=== PATIENT | male | born 1960 | race Caucasian/White ===

== ENCOUNTER 2017-09-27 08:57 | Emergency (ER) | payer OTHER ==
[~2017-09-27] VITALS: Ht 170.2 cm; Wt 71.2 kg
[~2017-09-27 08:57] MED LIST: ACYC800 PO; AMIT50 PO; ASPI81CH PO; ATOR40TA PO; CLOP75 PO; GABA300 PO; METO25 PO; METO25ER PO; NAPR500 PO; PANT40 PO; Protonix40 MG PO; SERT50 PO; VARE1 PO
[2017-09-27] MEDS ORDERED: EPIPEN 2-P0.3 MG/0.3 IM (09:09)
== END 2017-09-27 09:54 | disposition home or self-care (01) ==
LOC: ER 08:57
DX: T63.441A Toxic effect of venom of bees, accidental (unintentional), initial encounter (principal); Z79.82 Long term (current) use of aspirin; Z79.899 Other long term (current) drug therapy
CPT/HCPCS: 96372; 99283; J0171; Q0163

== ENCOUNTER → 2019-08-08 | Outpatient (CLI) | payer BC ==
[~2019-08-08] MED LIST changes: +EPIPEN 2-P0.3 MG/0.3 IM
[2019-08-08 09:02] LABS: BASOPHILS ABSOLUTE AUTO 0.04 K/mm3 (0.00-0.23); BASOPHILS PERCENT AUTO 0 % (0-2); EOSINOPHILS ABSOLUTE AUTO 0.31 K/mm3 (0.00-0.68); EOSINOPHILS PERCENT AUTO 3 % (0-6); Hematocrit 44.9 % (37.0-53.0); Hemoglobin 15.5 g/dL (13.5-17.5); IMMATURE GRAN ABSOLUTE AUTO 0.02 K/mm3 (0.00-0.10); IMMATURE GRAN PERCENT AUTO 0 % (0-1); LYMPHOCYTES ABSOLUTE AUTO 2.85 K/mm3 (0.84-5.20); LYMPHOCYTES PERCENT AUTO 29 % (21-46); MONOCYTES PERCENT AUTO 11 % (4-13); Mean Corpuscular HGB 29.6 pg (26.0-34.0); Mean Corpuscular HGB Conc 34.5 g/dL (31.5-36.5); Mean Corpuscular Volume 86 fL (80-100); Mean Platelet Volume 9.1 fL (9.1-12.4); NEUTROPHILS ABSOLUTE AUTO 5.39 K/mm3 (1.96-9.15); NEUTROPHILS PERCENT AUTO 56 % (41-73); Platelet Count 297 K/mm3 (150-400); RDW Coefficient Variation 13.1 % (11.7-14.2); RDW Standard Deviation 40.7 fL (35.1-46.3); Red Blood Cell Count 5.24 M/mm3 (4.30-5.90); White Blood Cell Count 9.71 K/mm3 (4.00-11.30)
[2019-08-08 09:12] LABS: Alanine Aminotransfer (ALT/SGP 33 U/L (12-78); Albumin, Blood 4.1 g/dL (3.4-5.0); Albumin/Globulin Ratio 1.1 (0.8-1.8); Alk Phos 59 U/L (40-126); Anion Gap 10 mmol/L (6-16); Aspartate Aminotrans (AST/SGOT 20 U/L (12-37); Bilirubin, Total 0.4 mg/dL (0.1-1.0); Blood Urea Nitrogen 25 mg/dL (8-24); Bun/Creatinine Ratio 29.8 (12.0-20.0); CO2, Blood 25 mmol/L (21-32); Calcium, Blood 8.4 mg/dL (8.5-10.1); Chloride, Blood 105 mmol/L (98-108); Creatinine, Blood 0.84 mg/dL (0.60-1.20); Globulin, Blood 3.6 g/dL (2.2-4.0); Glomerular Filtration Rate >60 (60-); Glucose, Blood 103 mg/dL (70-99); Potassium, Blood 4.3 mmol/L (3.5-5.5); Sodium, Blood 140 mmol/L (136-145); Total Protein, Blood 7.7 g/dL (6.4-8.2)
== END | disposition home or self-care (01) ==
LOC: LAB EV 08:55 → LAB SHORT 08:55
PROVIDERS: Physician Assistant
DX: R50.9 Fever, unspecified (principal); R05 Cough
CPT/HCPCS: 80053; 85025

== ENCOUNTER 2019-11-12 03:14 | Emergency (ER) | payer BC ==
[~2019-11-12] VITALS: Ht 170.2 cm; Wt 73.9 kg
[2019-11-12] MEDS ORDERED: Cyclobenzaprine5 MG PO (04:59)
== END 2019-11-12 05:03 | disposition home or self-care (01) ==
LOC: ER 03:14
DX: M43.6 Torticollis (principal); F17.210 Nicotine dependence, cigarettes, uncomplicated
CPT/HCPCS: 96372; 99283-25; J1885

== ENCOUNTER 2021-08-18 08:02 | Day surgery (SDC) | payer BC, OTHER ==
[~2021-08-18] VITALS: Ht 170.2 cm; Wt 69.5 kg
[~2021-08-18 08:02] MED LIST changes: +ATOR80 PO; +Cyclobenzaprine5 MG PO; +FLOMAX0.4 MG PO; +Prinivil10 MG PO
--- NOTE | 2021-08-18 08:38 | NUR ---
History, Chart, Medications and Allergies reviewed before start of procedure. Patient confirms NPO status and agrees with scheduled surgery. Patient States Post-Procedure ride home has been arranged with friend Ashok Duran.
--- NOTE | 2021-08-18 09:22 | NUR ---
08/18/21 0922 Cheng Ardon History, Chart, Medications and Allergies reviewed before start of procedure. Patient confirms NPO status and agrees with scheduled surgery. 3-LEAD EKG REVIEWED WITH PHYSICIAN PRIOR TO START OF PROCEDURE. MONITOR INTACT WITH CONTINUOUS PULSE OXIMETRY AND INTERMITTENT BP. PATIENT DETERMINED TO BE ASA APPROPRIATE FOR PROPOFOL SEDATION PRIOR TO START OF PROCEDURE BY
--- NOTE | 2021-08-18 11:00 | NUR ---
PT DECLINES FOOD AND WATER MULT TIMES, REPORTS READY TO GO HOME AND HAVE A MEAL. Patient up to Ambulate independently. Gait steady. Discharge instructions reviewed with patient. Patient verbalizes understanding. Copy given to patient to take home. Patient States Post-Procedure ride home has been arranged. Discharged via wheelchair to private car for ride home.
== END 2021-08-18 11:00 | disposition home or self-care (01) ==
LOC: ORSCMMR 08:02 → ORD 09:30 → ORSCMMR 09:30
PROVIDERS: Internal Medicine Gastroenterology
PROC: 0DB78ZX Excision of Stomach, Pylorus, Via Natural or Artificial Opening Endoscopic, Diagnostic (ICD-10-PCS; principal; 2021-08-18 09:30)
PROC: 3E0H8KZ Introduction of Other Diagnostic Substance into Lower GI, Via Natural or Artificial Opening Endoscopic (ICD-10-PCS; principal; 2021-08-18 09:30)
PROC: 0DBN8ZX Excision of Sigmoid Colon, Via Natural or Artificial Opening Endoscopic, Diagnostic (ICD-10-PCS; principal; 2021-08-18 09:30)
PROC: 0D757ZZ Dilation of Esophagus, Via Natural or Artificial Opening (ICD-10-PCS; principal; 2021-08-18 09:30)
PROC: 0DBM8ZX Excision of Descending Colon, Via Natural or Artificial Opening Endoscopic, Diagnostic (ICD-10-PCS; principal; 2021-08-18 09:30)
PROC: 0DBK8ZX Excision of Ascending Colon, Via Natural or Artificial Opening Endoscopic, Diagnostic (ICD-10-PCS; principal; 2021-08-18 09:30)
PROC: 0DB58ZX Excision of Esophagus, Via Natural or Artificial Opening Endoscopic, Diagnostic (ICD-10-PCS; principal; 2021-08-18 09:30)
DX: R13.10 Dysphagia, unspecified (principal); K21.9 Gastro-esophageal reflux disease without esophagitis; Z12.11 Encounter for screening for malignant neoplasm of colon; Z80.0 Family history of malignant neoplasm of digestive organs; Z86.010 Personal history of colon polyps; D12.2 Benign neoplasm of ascending colon; D12.4 Benign neoplasm of descending colon; K57.30 Diverticulosis of large intestine without perforation or abscess without bleeding; K64.8 Other hemorrhoids; F17.210 Nicotine dependence, cigarettes, uncomplicated; I10 Essential (primary) hypertension; E78.5 Hyperlipidemia, unspecified; I25.2 Old myocardial infarction; Z79.899 Other long term (current) drug therapy
CPT/HCPCS: 88305; 88342; J2704; J7120

== ENCOUNTER 2022-05-08 08:41 | Day surgery (SDC) | payer BC, OTHER ==
[~2022-05-08] VITALS: Ht 170.2 cm; Wt 71.0 kg
[2022-05-08] MEDS ORDERED: ASPI81CH PO (08:59)
[2022-05-08 09:06] VITALS: BP 126/76
--- NOTE | 2022-05-08 10:50 | NUR ---
PT WATCHING TV, NO ACUTE CHANGED. CALL LIGHT AT BEDSIDE.
--- NOTE | 2022-05-08 12:30 | NUR ---
PT UPDATED THAT HIS PROCEDURE NEEDED TO BE CANCELLED DUE TO LONG DELAY FROM CASE PRIOR. PT IS UPSET BUT POLITE. PTS IV DC'D INTACT AND PT AMB OUT OF DEPARTMENT WITH STEADY GAIT.
[2022-05-12] MEDS ORDERED: MELO7.5 PO (10:54)
[2022-05-12] MEDS ORDERED: MUPIROCIN15 GM TP (10:54)
[2022-05-15] MEDS ORDERED: OXYC5 PO (11:17)
[2022-05-15] MEDS ORDERED: ACET500 PO (11:17)
== END 2022-05-08 22:51 | disposition home or self-care (01) ==
LOC: ORSCMMR 08:41 → ORD 10:45 → ORSCMMR 22:51
DX: M17.12 Unilateral primary osteoarthritis, left knee (principal); Z53.9 Procedure and treatment not carried out, unspecified reason
CPT/HCPCS: A9270; J0171; J0690; J0735; J1885; J2704; J2795; J3010; J7120

== ENCOUNTER → 2022-05-12 | Day surgery (SDC) | payer BC, OTHER ==
[~2022-05-12] VITALS: Ht 167.6 cm; Wt 72.0 kg
[~2022-05-12] MED LIST changes: +MELO7.5 PO; +MUPIROCIN15 GM TP
--- NOTE | 2022-05-12 11:24 | NUR ---
UPPER DENTURES GLUED IN PLACE; LOWER DENTURES IN PT BELONGING BAG. READING GLASSES LABELED & PLACED IN PACU.
--- NOTE | 2022-05-12 11:24 | NUR ---
Ambulatory in Day Surgery. Pre-Op teaching done. Pt verbalizes understanding. Patient confirms NPO status and agrees with scheduled surgery. Patient reports completing Chlorhexadine shower X2 prior to admission to hospital. Lungs clear T/O to Auscultation.
--- NOTE | 2022-05-12 14:56 | NUR ---
SHIFT SUMMARY/NOTE: PATIENT CAME BACK FROM PACU TODAY AT 1450. POD 0 LEFT TOTAL KNEE PATIENT IS A&OX4. VS ARE WNL AND IS ON RA. PATIENT HAD A SPINAL DURING PROCEDURE AND DENIES PAIN AT THIS TIME. HE REPORTS FEELING PRESSURE FROM THE KNEES DOWN BUT CAN NOT WIGGLE HIS TOES YET. PEDAL PULSES ARE STRONG. HIS LEFT KNEE AQUACEL IS C/D/I. HE IS TOLERATING SMALL AMOUNTS OF PO INTAKE AT THIS TIME. HE IS LAYING IN BED WITH CALL LIGHT IN REACH.
[2022-05-13 04:08] LABS: BASOPHILS ABSOLUTE AUTO 0.02 K/mm3 (0.00-0.23); BASOPHILS PERCENT AUTO 0 % (0-2); EOSINOPHILS ABSOLUTE AUTO 0.01 K/mm3 (0.00-0.68); EOSINOPHILS PERCENT AUTO 0 % (0-6); Hematocrit 38.4 % (37.0-53.0); Hemoglobin 13.5 g/dL (13.5-17.5); IMMATURE GRAN ABSOLUTE AUTO 0.12 K/mm3 (0.00-0.10); IMMATURE GRAN PERCENT AUTO 1 % (0-1); LYMPHOCYTES ABSOLUTE AUTO 1.23 K/mm3 (0.84-5.20); LYMPHOCYTES PERCENT AUTO 7 % (21-46); MONOCYTES ABSOLUTE AUTO 1.16 K/mm3 (0.16-1.47); MONOCYTES PERCENT AUTO 7 % (4-13); Mean Corpuscular HGB Conc 35.2 g/dL (31.5-36.5); Mean Corpuscular Volume 85 fL (80-100); Mean Platelet Volume 9.7 fL (9.1-12.4); NEUTROPHILS ABSOLUTE AUTO 15.07 K/mm3 (1.96-9.15); NEUTROPHILS PERCENT AUTO 86 % (41-73); Platelet Count 203 K/mm3 (150-400); RDW Coefficient Variation 12.8 % (11.7-14.2); RDW Standard Deviation 39.7 fL (35.1-46.3); White Blood Cell Count 17.61 K/mm3 (4.00-11.30)
[2022-05-13 04:26] LABS: Magnesium, Blood 2.1 mg/dL (1.6-2.4)
[2022-05-13 04:27] LABS: Bun/Creatinine Ratio 16.8 (12.0-20.0); Calcium, Blood 8.1 mg/dL (8.5-10.1); Creatinine, Blood 0.77 mg/dL (0.60-1.20)
--- NOTE | 2022-05-13 05:49 | NUR ---
CORPORATE DIRECTOR OF PHARMACY SUMMARY PT IS POD 0 FOR L TKA. PT HAS AMBULATED WELL WITH A STANDBY ASSIST AND FWW. MEDICATED WITH OXY 10 MG WITH DILAUDID 0.5 MG IV X1 FOR BREAKTHROUGH PAIN. AQUACEL DRESSING TO L KNEE, C/D/I. SPINAL WORE OFF EARLY IN SHIFT, PT HAS FULL SENSATION AND ABLE TO WIGGLE TOES. VSS, WILL CONTINUE TO MONITOR.
--- NOTE | 2022-05-13 17:20 | NUR ---
SHIFT SUMMARY: POD 1 LEFT TKA NO SIGNIFICANT CHANGES. HE IS STILL REPORTING AN 8/10 PAIN TO THE LEFT KNEE. HE REPORTS "I FEEL IT CRAMPING/THROBBING RIGHT ABOVE MY KNEE CAP". HE HAS BEEN GIVEN 10MG PO OXY AND HAS HAD 0.5 MG OF IV DILAUDID FOR BREAKTHROUGH PAIN WITH LITTLE IMPROVEMENT. NOTIFIED DR. TAY WHO GAVE AN EXTRA 5MG OXY THIS MORNING ON TOP OF THE 10MG GIVEN ALREADY WITH NO IMPROVEMENT WITH PAIN. THEN SPOKE WITH PACKAGING OPERATOR ORTHO WHICH WAS DR. VENTURA AND HE CHANGED THE ORDERS TO 15MG PO OXY Q4P, 1MG IV DILAUDID Q1P, AND A CONTINUOUS BIOX ORDER. HE HAS AN AQUACEL THAT IS C/D/I ON THE LEFT KNEE. HE IS VOIDING AND TOLERATING PO INTAKE. HE IS A SBA WITH THE FWW AND GAIT BELT. CALLS APPROPRIATELY. CALL LIGHT WITHIN REACH. THE PLAN IS TO HAVE PAIN MANAGED SO HE IS ABLE TO WORK WITH PHYSICAL THERAPY MORE TOMORROW. THEN IF IT IS APPROPRIATE HE CAN DISCHARGE HOME TOMORROW.
--- NOTE | 2022-05-14 04:19 | NUR ---
POD2 FOR LEFT TKA. SENSATION REMAINS INTACT IN LLE, BUT PT C/O TINGLING IN TOES. CIRCULATION REMAINS INTACT. DRESSING REMAINS C/D/I. VSS. PT DID NOT SLEEP WELL D/T PAIN. MEDICATED WITH SCHEDULED AND PRN MEDICATIONS FREQUENTLY. PT EXPERIENCED MINIMAL RELIEF. BRUISING HAS SLOWLY STARTED TO DEVELOP ON THE PATIENTS KNEE CAP T/O THE NIGHT. SWELLING NOTED AROUND PATIENTS KNEE, BEHIND THE KNEE, AND EXTENDING UP THE PATIENTS THIGH. THIS SWELLING HAS INCREASED T/O THE NIGHT, PT STATES HE FEELS IF HIS LEG IS GETTING "TIGHTER". PT ENCOURAGED TO USE POLAR PACK TO HELP WITH SWELLING. PT DID NOT GET OOB THIS SHIFT D/T PAIN. PLAN FOR PT TO WORK WITH THERAPY TODAY AND D/C IF PAIN IS UNDER CONTROL. THE PATIENT IS CURRENTLY RESTING IN BED, CALL LIGHT IN REACH
--- NOTE | 2022-05-14 16:29 | NUR ---
SHIFT SUMMARY POD 2 L TKA PT PAIN IMPROVED T/O SHIFT. HE WAS ABLE TO WORK WELL WITH THERAPY AND IS EXCITED TO POSSIBLY DISCHARGE TOMORROW. SWELLING IMPROVES WHEN PATIENT USES HIS POLAR [place] BUT L KNEE REMAINS SWOLLEN.
== END ==
LOC: ORSCMMR 10:07 → ORD 11:30 → ORSCMMR 11:30 → SURS 14:46
PROVIDERS: Orthopaedic Surgery
PROC: 0SRD0JZ Replacement of Left Knee Joint with Synthetic Substitute, Open Approach (ICD-10-PCS; principal; 2022-05-12 11:30)
DX: M17.12 Unilateral primary osteoarthritis, left knee (principal)
CPT/HCPCS: 36415; 73560-LT; 80048; 83735; 85025; 94762; 97110; 97112; 97116; 97161; A9270; J0171; J0690; J0735; J1100; J1170; J1885; J2250; J2370; J2405; J2704; J2795; J3010; J7120

== ENCOUNTER 2022-11-30 21:36 | Emergency (ER) | payer BC, OTHER ==
[~2022-11-30] VITALS: Ht 170.2 cm; Wt 67.1 kg
[~2022-11-30 21:36] MED LIST changes: +ACET500 PO; +OXYC5 PO
[2022-11-30 22:10] VITALS: BP 136/116
[2022-11-30 23:00] LABS: BASOPHILS ABSOLUTE AUTO 0.03 K/mm3 (0.00-0.23); BASOPHILS PERCENT AUTO 0 % (0-2); EOSINOPHILS ABSOLUTE AUTO 0.06 K/mm3 (0.00-0.68); EOSINOPHILS PERCENT AUTO 1 % (0-6); Hematocrit 42.7 % (37.0-53.0); Hemoglobin 14.8 g/dL (13.5-17.5); IMMATURE GRAN ABSOLUTE AUTO 0.03 K/mm3 (0.00-0.10); IMMATURE GRAN PERCENT AUTO 0 % (0-1); LYMPHOCYTES ABSOLUTE AUTO 1.57 K/mm3 (0.84-5.20); LYMPHOCYTES PERCENT AUTO 18 % (21-46); MONOCYTES ABSOLUTE AUTO 0.99 K/mm3 (0.16-1.47); MONOCYTES PERCENT AUTO 11 % (4-13); Mean Corpuscular HGB 29.3 pg (26.0-34.0); Mean Corpuscular HGB Conc 34.7 g/dL (31.5-36.5); Mean Corpuscular Volume 85 fL (80-100); Mean Platelet Volume 8.9 fL (9.1-12.4); NEUTROPHILS ABSOLUTE AUTO 6.28 K/mm3 (1.96-9.15); NEUTROPHILS PERCENT AUTO 70 % (41-73); Platelet Count 211 K/mm3 (150-400); RDW Coefficient Variation 13.2 % (11.7-14.2); RDW Standard Deviation 40.9 fL (35.1-46.3); Red Blood Cell Count 5.05 M/mm3 (4.30-5.90); White Blood Cell Count 8.96 K/mm3 (4.00-11.30)
[2022-11-30 23:27] LABS: Albumin, Blood 3.8 g/dL (3.4-5.0); Bilirubin, Total 0.4 mg/dL (0.1-1.0); Bun/Creatinine Ratio 12.5 (12.0-20.0); Creatinine, Blood 0.8 mg/dL (0.60-1.20); Globulin, Blood 3.8 g/dL (2.2-4.0); Potassium, Blood 4.1 mmol/L (3.5-5.5); Total Protein, Blood 7.6 g/dL (6.4-8.2)
[2022-12-01] MEDS ORDERED: OXAYDO5 M1 PO (00:35)
[2022-12-01] MEDS ORDERED: ELIQUIS5 MG PO (00:35)
[2022-12-02] MEDS ORDERED: Roxicodone5 MG PO (22:23)
== END 2022-12-01 01:03 | disposition home or self-care (01) ==
LOC: ER 21:36
PROVIDERS: Student in an Organized Health Care Education/Training Program
DX: I73.9 Peripheral vascular disease, unspecified (principal); Z87.891 Personal history of nicotine dependence; Z88.0 Allergy status to penicillin; Z79.82 Long term (current) use of aspirin; Z79.899 Other long term (current) drug therapy
CPT/HCPCS: 80053; 85025; 93926; 96374; 99284-25; A9270; J1885

== ENCOUNTER 2022-12-02 19:49 | Emergency (ER) | payer BC, OTHER ==
[~2022-12-02] VITALS: Ht 170.2 cm; Wt 67.1 kg
[~2022-12-02 19:49] MED LIST changes: +ELIQUIS5 MG PO; +OXAYDO5 M1 PO
[2022-12-02 20:28] LABS: Hematocrit 41.8 % (37.0-53.0); Hemoglobin 14.6 g/dL (13.5-17.5); Mean Corpuscular HGB 28.9 pg (26.0-34.0); Mean Corpuscular HGB Conc 34.9 g/dL (31.5-36.5); Mean Corpuscular Volume 83 fL (80-100); Mean Platelet Volume 8.9 fL (9.1-12.4); Platelet Count 201 K/mm3 (150-400); RDW Coefficient Variation 13.2 % (11.7-14.2); RDW Standard Deviation 39.4 fL (35.1-46.3); Red Blood Cell Count 5.05 M/mm3 (4.30-5.90)
[2022-12-02 20:52] LABS: Albumin, Blood 3.6 g/dL (3.4-5.0); Bilirubin, Total 0.4 mg/dL (0.1-1.0); Bun/Creatinine Ratio 9.6 (12.0-20.0); Calcium, Blood 8.4 mg/dL (8.5-10.1); Creatinine, Blood 0.94 mg/dL (0.60-1.20); Globulin, Blood 3.7 g/dL (2.2-4.0); Total Protein, Blood 7.3 g/dL (6.4-8.2)
[2022-12-02 21:14] LABS: Influenza A, PCR NEGATIVE (NEGATIVE); Influenza B, PCR NEGATIVE (NEGATIVE); Resp Syncytial Virus, PCR NEGATIVE (NEGATIVE); SARS-Cov-2 (COVID-19) PCR, MMC NEGATIVE (NEGATIVE)
[2022-12-02 21:25] LABS: BASOPHILS PERCENT MAN 0 % (0-2); EOSINOPHILS ABSOLUTE MAN 0.07 K/mm3 (0.00-0.68); EOSINOPHILS PERCENT MAN 1 % (0-6); LYMPHOCYTES % ATYPICAL MANUAL 3 % (0-0); LYMPHOCYTES ABSOLUTE MAN 1.89 K/mm3 (0.84-5.20); LYMPHOCYTES PERCENT MAN 24 % (21-46); MONOCYTES ABSOLUTE MAN 0.56 K/mm3 (0.16-1.47); MONOCYTES PERCENT MAN 8 % (4-13); NEUTROPHILS ABSOLUTE MAN 4.48 K/mm3 (1.96-9.15); SEG NEUTROPHILS PERCENT MAN 64 % (41-73); TOTAL CELLS COUNTED 100
[2022-12-02] MEDS ORDERED: Roxicodone5 MG PO (22:23)
[2022-12-02 23:17] VITALS: BP 102/76
== END 2022-12-02 23:19 | disposition home or self-care (01) ==
LOC: ER 19:49
PROVIDERS: Emergency Medicine; Student in an Organized Health Care Education/Training Program
DX: J02.9 Acute pharyngitis, unspecified (principal); M79.605 Pain in left leg; R07.2 Precordial pain; Z88.0 Allergy status to penicillin; Z79.899 Other long term (current) drug therapy; Z79.82 Long term (current) use of aspirin; Z87.891 Personal history of nicotine dependence
CPT/HCPCS: 0241U; 71045; 80053; 83605; 84484; 85025; 87081; 87430; 93005; 93010; 96374; 99283-25; A9270; J2405